=== PATIENT | male | born 1960 | race Caucasian/White ===

== ENCOUNTER 2020-12-09 09:35 | Inpatient (IN) | payer OTHER, MEDICAID, SELFPAY ==
[2020-12-09] VITALS (17 sets, daily range): BP systolic 126–218; BP diastolic 54–89; PULSE 53–78; RESP 16–18; TEMP 36.8–37.6; O2SAT 97–100; BMI 30.1
--- NOTE | 2020-12-09 09:48 | DI.RAD.S_ITS ---
PROCEDURE: XR FOOT LT MIN 3V INDICATIONS: ? stepped on nail 2 wks ago, now purple/ red L 5th / foot TECHNIQUE: 3 views of the foot were acquired. COMPARISON: None. FINDINGS: Bones: No fractures or dislocations. No suspicious bony lesions. Age-appropriate bony degenerative changes are seen. Soft tissues: There is soft tissue gas seen involving the proximal aspect 5th toe. No radiopaque foreign bodies are seen. Calcification is noted of the distal arteries. This degree of calcification is typically seen in patients with a long-standing history of diabetes. Please correlate with a history of such. IMPRESSION: Soft tissue gas can be seen involving proximal aspect 5th toe. No cira bony abnormality can be seen. If there is strong suspicion for developing osteomyelitis, please consider a dedicated MRI without and with contrast for further evaluation (assuming that there is no contraindication to MRI). Dictated by: Silas Merrill M.D. on 12/09/2020 at 9:06 Approved by: Silas Merrill M.D. on 12/09/2020 at 9:07
[2020-12-09 10:21] LABS: Add Manual Diff / Slide Review NO; Basophils Absolute Auto 100 /uL (0-100); Basophils Percent Auto 0.8 % (0-2); Eosinophils Absolute Auto 100 /uL (0-450); Eosinophils Percent Auto 0.4 % (2-4); Hematocrit 38.9 % (41-53); Hemoglobin 12.7 g/dL (13.5-17.5); Lymphocytes Absolute Auto 1000 /uL (1100-4500); Lymphocytes Percent Auto 7.1 % (25-40); Mean Corpuscular HGB Conc 32.7 % (30-36); Mean Corpuscular Hemoglobin 30.1 PG (26-34); Mean Corpuscular Volume 91.9 fL (80-100); Monocytes Absolute Auto 1200 /uL (0-900); Monocytes Percent Auto 8.8 % (3-14); Neutrophils Absolute Auto 11200 /uL (1500-7000); Neutrophils Percent Auto 82.9 % (50-75); Platelet Count 297 X10^3/uL (150-400); Red Blood Cell Count 4.23 X10^6/uL (4.5-5.9); Red Cell Distribution Width 13.7 % (11.6-14.8); White Blood Cell Count 13.5 X10^3/uL (4.5-11.0)
--- NOTE | 2020-12-09 10:23 | ED.LOWEXIN ---
HPI - Extremity Injury (Lower) General Chief Complaint: Extremity Injury, Lower Stated Complaint: LT FOOT INJURY/PAIN/TOE CHANGING COLOR/DIABETIC Time Seen by Provider: 12/09/20 10:20 Source: patient Mode of arrival: Wheelchair Limitations: no limitations History of Present Illness HPI Narrative: Patient is a 59-year-old male. History of high blood pressure and insulin-dependent diabetes who is here for evaluation of a red left foot and discoloration to his left little toe. Patient states that 2 weeks ago he stepped on a nail. He was wearing shoes and socks at the time. He states that a couple days ago he started to develop redness on the left side of his foot and then yesterday had discoloration of his toe. He is visiting the local area. He has not had any fevers. His last tetanus shot was 3 years ago. He went to an outside facility and then was sent to this emergency department for further evaluation. Related Data Home Medications Medication Instructions Recorded Confirmed amlodipine 5 mg tablet 5 mg PO DAILY 12/09/20 12/09/20 atorvastatin 20 mg tablet 20 mg PO BEDTIME 12/09/20 12/09/20 chlorthalidone 25 mg tablet 25 mg PO QAM 12/09/20 12/09/20 insulin glargine 100 unit/mL 38 unit SUBCUT BEDTIME 12/09/20 12/09/20 subcutaneous solution (Lantus U-100 Insulin) insulin lispro 100 unit/mL See Rx Instructions .ROUTE .COMPLEX 12/09/20 12/09/20 subcutaneous solution (Humalog U-100 Insulin) lisinopril 20 mg tablet 20 mg PO DAILY 12/09/20 12/09/20 Allergies Allergy/AdvReac Type Severity Reaction Status Date / Time Penicillins AdvReac Nausea Verified 12/09/20 09:55 Review of Systems Constitutional Constitutional: Denies fever(s) Cardiovascular Cardiovascular: Reports system reviewed and no additional complaints, except as documented Respiratory Respiratory: Reports system reviewed and no additional complaints, except as documented Gastrointestinal Gastrointestinal: Reports system reviewed and no additional complaints, except as documented Musculoskeletal Musculoskeletal: Reports as per HPI Integumentary/Breasts Skin/Breast: Reports as per HPI Neurologic Comments: Does have some sensory deficits but these are unchanged Endocrine Endocrine: Reports system reviewed and no additional complaints, except as documented Hematologic/Lymphatic On Anticoagulants: No Allergic/Immunologic Allergic/Immunologic: Reports system reviewed and no additional complaints, except as documented Patient History Medical History Diabetes Hypertension alcohol intake frequency: 0-2 drinks per day Substance Use Type: does not use Exam Initial Vital Signs Initial Vital Signs: Vital Signs Temperature 99.6 F 12/09/20 09:52 Pulse Rate 65 12/09/20 09:52 Respiratory Rate 18 12/09/20 09:52 Blood Pressure 218/89 H 12/09/20 09:52 Pulse Oximetry 99 12/09/20 09:52 Const General: cooperative and healthy appearing [facility] Head: normal to inspection and normocephalic Resp Effort & Inspection: normal respiratory effort Cardio Rate: regular rate Pulses: dorsalis pedis present on the left GI Inspection: normal to inspection Skin Other: Patient has redness that is located to the lateral aspect of his left foot that does extend up into the dorsum of the foot to the mid foot. The left little toe is purple in color. It is somewhat cooler compared to the other toes. Capillary refill is 4-5 seconds. Neuro Other: Patient does report sensation to light touch the left foot Extrem Other: Left ankle is unremarkable. Please see skin section Psych Appearance: grossly normal and well kempt Course Orders Ordered: ED Orders 12/09/20 09:48 XR foot LT min 3V Stat 12/09/20 10:10 C-Reactive Protein Quant Stat Complete Blood Count AUTO DIFF Stat Comprehensive Metabolic Panel Stat Erythrocyte Sedimentation Rate Stat Lactate (Lactic Acid) Stat Lipase Stat Procalcitonin Stat 12/09/20 10:34 Blood Culture Stat 12/09/20 10:53 COVID19 - ADMIT ([employer] swab/PCR) Stat Discontinued Medications Amlodipine Besylate (Amlodipine 5 Mg Tablet) 5 mg PO NOW ONE Stop: 12/09/20 10:34 Last Admin: 12/09/20 10:42 Dose: 5 mg Documented by: MAINOR Chlorthalidone (Chlorthalidone 25 Mg Tablet) 25 mg PO NOW ONE Stop: 12/09/20 10:34 Last Admin: 12/09/20 11:27 Dose: 25 mg Documented by: SANDI Sodium Chloride (Normal Saline 0.9%) 1,000 mls @ 1,000 mls/hr IV BOLUS ONE Stop: 12/09/20 11:14 Last Infusion: 12/09/20 11:34 Dose: 0 mls/hr Documented by: Admin: 12/09/20 10:29 Dose: 1,000 mls/hr Documented by: MAINOR Cefepime HCl 1 gm/ Sodium (Chloride) 100 mls @ 200 mls/hr IV NOW ONE Stop: 12/09/20 10:34 Last Infusion: 12/09/20 11:34 Dose: 0 mls/hr Documented by: Admin: 12/09/20 10:42 Dose: 200 mls/hr Documented by: MAINOR Lisinopril (Lisinopril 20 Mg Tablet) 20 mg PO NOW ONE Stop: 12/09/20 10:34 Last Admin: 12/09/20 11:27 Dose: 20 mg Documented by: SANDI Vital Signs Vital signs: Vital Signs - 8 hr 12/09/20 09:52 12/09/20 10:00 12/09/20 10:30 Temperature 99.6 F Pulse Rate 65 68 69 Respiratory Rate 18 16 Blood Pressure 218/89 H 218/89 H Pulse Oximetry 99 99 99 12/09/20 10:45 12/09/20 11:00 Temperature Pulse Rate 72 78 Respiratory Rate Blood Pressure 189/79 H 185/77 H Pulse Oximetry 98 100 MDM - Extremity Injury (Lower) Lab Data Attestation: I reviewed the patient's lab results. Result diagrams: 12/09/20 10:10 12/09/20 10:10 Labs: Lab Results 12/09/20 12/09/20 12/09/20 Range/Units 10:10 10:10 10:10 WBC 13.5 H (4.5-11.0) X10^3/uL RBC 4.23 L (4.5-5.9) X10^6/uL Hgb 12.7 L (13.5-17.5) g/dL Hct 38.9 L (41-53) % MCV 91.9 (80-100) fL MCH 30.1 (26-34) PG MCHC 32.7 (30-36) % RDW 13.7 (11.6-14.8) % Plt Count 297 (150-400) X10^3/uL Neut % (Auto) 82.9 H (50-75) % Lymph % (Auto) 7.1 L (25-40) % [place] % (Auto) 8.8 (3-14) % Eos % (Auto) 0.4 L (2-4) % Baso % (Auto) 0.8 (0-2) % Neut # (Auto) 18064 H (8129-0201) /uL Lymph # (Auto) 1000 L (7563-4009) /uL [place] # (Auto) 1200 H (0-900) /uL Eos # (Auto) 100 (0-450) /uL Baso # (Auto) 100 (0-100) /uL ESR (0-15) MM/HR Sodium 137 (137-145) mmol/L Potassium 4.4 (3.4-5.1) mmol/L Chloride 106 (98-107) mmol/L Carbon Dioxide 23 (22-32) mmol/L BUN 29 H (9-20) mg/dL Creatinine 1.37 H (0.66-1.25) mg/dL Estimated GFR 52.8 L (>60) mL/min BUN/Creatinine Ratio 21.2 (6-22) Glucose 119 H (80-110) mg/dL Lactate 1.0 (0.7-2.1) mmol/L Calcium 9.0 (8.4-10.2) mg/dL Total Bilirubin 0.5 (0.2-1.3) mg/dL AST 25 (17-59) IU/L ALT 17 (<50) IU/L Alkaline Phosphatase 89 (38-126) U/L C-Reactive Protein (<1.0) mg/dL Total Protein 7.3 (6.3-8.2) g/dL Albumin 4.0 (3.5-5.0) g/dL Globulin 3.3 (1.7-4.1) g/dL Albumin/Globulin Ratio 1.2 (1.0-2.8) Lipase 20 L (23-300) U/L Procalcitonin 0.09 (<0.5) ng/mL 12/09/20 12/09/20 Range/Units 10:10 10:10 WBC (4.5-11.0) X10^3/uL RBC (4.5-5.9) X10^6/uL Hgb (13.5-17.5) g/dL Hct (41-53) % MCV (80-100) fL MCH (26-34) PG MCHC (30-36) % RDW (11.6-14.8) % Plt Count (150-400) X10^3/uL Neut % (Auto) (50-75) % Lymph % (Auto) (25-40) % [place] % (Auto) (3-14) % Eos % (Auto) (2-4) % Baso % (Auto) (0-2) % Neut # (Auto) (1728-2689) /uL Lymph # (Auto) (9101-6486) /uL [place] # (Auto) (0-900) /uL Eos # (Auto) (0-450) /uL Baso # (Auto) (0-100) /uL ESR 37 H (0-15) MM/HR Sodium (137-145) mmol/L Potassium (3.4-5.1) mmol/L Chloride (98-107) mmol/L Carbon Dioxide (22-32) mmol/L BUN (9-20) mg/dL Creatinine (0.66-1.25) mg/dL Estimated GFR (>60) mL/min BUN/Creatinine Ratio (6-22) Glucose (80-110) mg/dL Lactate (0.7-2.1) mmol/L Calcium (8.4-10.2) mg/dL Total Bilirubin (0.2-1.3) mg/dL AST (17-59) IU/L ALT (<50) IU/L Alkaline Phosphatase (38-126) U/L C-Reactive Protein 7.3 H (<1.0) mg/dL Total Protein (6.3-8.2) g/dL Albumin (3.5-5.0) g/dL Globulin (1.7-4.1) g/dL Albumin/Globulin Ratio (1.0-2.8) Lipase (23-300) U/L Procalcitonin (<0.5) ng/mL MDM Narrative Medical decision making narrative: Patient is at baseline neurologic status. He does have good dorsalis pedis pulses. He is updated on his tetanus. He does have findings consistent with cellulitis. Most likely caused by the injury that he sustained 2 weeks ago. Concern for Pseudomonas given the nature of the injury. He is diabetic. He is nontoxic appearing. However given his presentation, nature of wound, diabetes I do feel that he needs admitted to the hospital for further evaluation. Discussed the case with Dr. Cruz with Internal Medicine who will admit for further evaluation and treatment. Discussed the admission with the patient who expressed understanding and agreement. Discharge Plan Departure Patient Disposition: Admitted As Inpatient Clinical Impression: Cellulitis, Hypertension
[2020-12-09 10:29] LABS: Alanine Aminotransferase 17 IU/L (<50); Albumin Globulin Ratio 1.2 (1.0-2.8); Alkaline Phosphatase 89 U/L (38-126); Aspartate Aminotransferase 25 IU/L (17-59); BUN Creatinine Ratio 21.2 (6-22); Bilirubin Total 0.5 mg/dL (0.2-1.3); Blood Urea Nitrogen 29 mg/dL (9-20); Carbon Dioxide 23 mmol/L (22-32); Chloride 106 mmol/L (98-107); Estimated Glomerular Filt Rate 52.8 mL/min (>60); Globulin 3.3 g/dL (1.7-4.1); Glucose 119 mg/dL (80-110); HEMOLYSIS < 15 (0-50); Lipase 20 U/L (23-300); Potassium 4.4 mmol/L (3.4-5.1); Sodium 137 mmol/L (137-145); Total Protein 7.3 g/dL (6.3-8.2)
[2020-12-09] MEDS: SODIUM CHLORIDE 0.9% 1,000 ML 1000 ML IV (10:29)
[2020-12-09] MEDS: CEFEPIME 1 GM in SODIUM CHLORIDE 0.9% 100 ML 200 ML IV (10:42)
[2020-12-09] MEDS: AMLODIPINE 5 MG TABLET PO (10:42)
[2020-12-09 10:46] LABS: Procalcitonin 0.09 ng/mL (<0.5)
[2020-12-09 11:18] LABS: C-Reactive Protein Quant 7.3 mg/dL (<1.0)
[2020-12-09 11:26] LABS: Erythrocyte Sedimentation Rate 37 MM/HR (0-15)
[2020-12-09] MEDS: CHLORTHALIDONE 25 MG TABLET PO (11:27)
[2020-12-09] MEDS: lisinopriL 20 MG TABLET PO (11:27)
--- NOTE | 2020-12-09 13:20 | DI.MRI.S_ITS ---
PROCEDURE: MR FOOT LT WO/W CON INDICATIONS: puncture on ball of L foot, now with purple 5th toe, osteo? TECHNIQUE: Noncontrast coronal T1 spin echo and STIR, sagittal T1 spin echo with fat saturation and STIR, axial T1 spin echo and T2 fast spin echo with fat saturation. After the administration of contrast, axial/sagittal/coronal T1 spin echo with fat saturation through the left forefoot . COMPARISON: [facility], CR, XR FOOT LT MIN 3V, 12/09/2020, 9:51. FINDINGS: Image quality: Severely degraded by motion artifact. Bones: Evaluation is suboptimal secondary to severe motion artifact. There is suggestion of loss of the normal marrow fat signal intensity within the distal phalanx of the 5th toe although partially obscured by motion artifact. This also appears distant from the soft tissue swelling. At the 5th metatarsal head, there is possible cortical loss along the lateral aspect suggestive of erosion versus osteomyelitis. There is subtle enhancement seen in this area There is also chronic appearing erosion of the 1st metatarsal head with sclerotic margins. Soft tissues: There is soft tissue swelling involving the 5th toe. No definite rim enhancing abscess seen. There is dorsal forefoot subcutaneous edema. IMPRESSION: Severely motion degraded examination. Soft tissue swelling about the 5th toe. Marrow signal changes at the 5th metatarsal head could represent osteomyelitis versus erosion related to non infectious, inflammatory arthritis. Please correlate clinically. Additional marrow signal changes present in the distal phalanx of the 5th toe although partially obscured by motion artifact, technically indeterminate. Please see discussion above. Chronic appearing, large erosion involving the 1st metatarsal head. Dictated by: Terence Coreas M.D. on 12/09/2020 at 16:47 Approved by: Terence Coreas M.D. on 12/09/2020 at 17:00
[2020-12-09 13:23] LABS: Bacteria Urine None Seen; RBC Urine None Seen (0-5/HPF)
[2020-12-09] MEDS: SODIUM CHLORIDE 0.9% 1,000 ML 100 ML IV (13:34)
[2020-12-09] MEDS: MEROPENEM 1 GM in SODIUM CHLORIDE 0.9% 100 ML 200 ML IV (13:46)
[2020-12-09 14:04] LABS: COVID19 - ADMIT (NP swab/PCR) Negative (Negative)
[2020-12-09 14:21] LABS: Culture Indicated Urine Cult Not Indicated; WBC Urine 0-1/HPF (0-5/HPF)
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
[2020-12-09] MEDS: HYDROCODONE/ACET 5/325 TABLET 1 TAB PO (17:51)
[2020-12-09] MEDS: ATORVASTATIN 20 MG TABLET PO (21:02)
[2020-12-09] MEDS: HEPARIN 5,000 UNIT/ML VIAL 5000 UNIT SUBCUT (21:02)
[2020-12-09] MEDS: INSULIN GLARGINE 100 UNIT/ML 3ML PEN 38 UNIT SUBCUT (21:27)
[2020-12-09] MEDS: INSULIN LISPRO 100 UNIT/ML 3ML VIAL SUBCUT (21:28)
[2020-12-10] VITALS (7 sets, daily range): BP systolic 135–169; BP diastolic 59–73; PULSE 57–61; RESP 16–20; TEMP 36.5–36.8; O2SAT 97–100
[2020-12-10] MEDS: HYDROCODONE/ACET 5/325 TABLET 1 TAB PO ×3 (01:05→19:35)
[2020-12-10] MEDS: MEROPENEM 1 GM in SODIUM CHLORIDE 0.9% 100 ML 200 ML IV ×2 (01:05→14:17)
[2020-12-10] MEDS: SODIUM CHLORIDE 0.9% 1,000 ML 100 ML IV ×2 (04:31→15:44)
[2020-12-10 05:40] LABS: Add Manual Diff / Slide Review NO; Basophils Absolute Auto 100 /uL (0-100); Basophils Percent Auto 1.2 % (0-2); Eosinophils Absolute Auto 100 /uL (0-450); Eosinophils Percent Auto 1.4 % (2-4); Hematocrit 35.5 % (41-53); Hemoglobin 11.7 g/dL (13.5-17.5); Lymphocytes Absolute Auto 1600 /uL (1100-4500); Lymphocytes Percent Auto 17.4 % (25-40); Mean Corpuscular HGB Conc 33.1 % (30-36); Mean Corpuscular Hemoglobin 30.3 PG (26-34); Mean Corpuscular Volume 91.8 fL (80-100); Monocytes Absolute Auto 1200 /uL (0-900); Monocytes Percent Auto 12.7 % (3-14); Neutrophils Absolute Auto 6200 /uL (1500-7000); Neutrophils Percent Auto 67.3 % (50-75); Platelet Count 287 X10^3/uL (150-400); Red Blood Cell Count 3.86 X10^6/uL (4.5-5.9); Red Cell Distribution Width 13.6 % (11.6-14.8); White Blood Cell Count 9.2 X10^3/uL (4.5-11.0)
[2020-12-10 05:44] LABS: BUN Creatinine Ratio 17.2 (6-22); Blood Urea Nitrogen 20 mg/dL (9-20); Calcium 8.2 mg/dL (8.4-10.2); Carbon Dioxide 25 mmol/L (22-32); Chloride 105 mmol/L (98-107); Estimated Glomerular Filt Rate > 60.0 mL/min (>60); Glucose 59 mg/dL (80-110); HEMOLYSIS < 15 (0-50); Potassium 3.8 mmol/L (3.4-5.1); Sodium 135 mmol/L (137-145)
--- NOTE | 2020-12-10 06:40 | PC.NURSE ---
0615 Lab. glucose 59 given some snacks, apple juice & chocolate pudding. Declined some sandwich & milk, will monitor.
[2020-12-10] MEDS: AMLODIPINE 5 MG TABLET PO (08:04)
[2020-12-10] MEDS: HEPARIN 5,000 UNIT/ML VIAL 5000 UNIT SUBCUT ×2 (08:04→20:40)
[2020-12-10] MEDS: INSULIN LISPRO 100 UNIT/ML 3ML VIAL SUBCUT ×3 (08:10→17:05)
--- NOTE | 2020-12-10 14:36 | PM.PN.1 ---
Subjective Subjective Date Patient Seen: 12/10/20 Time Patient Seen: 08:00 Interval history: Today he feels well. Has pain in the foot. The toe still remains discolored and he still has foot erythema. His MRI had questionable osteomyelitis. Exam Vital Signs (past 8 hours): - 12/10/20 07:00 12/10/20 08:00 12/10/20 09:24 Temperature 97.8 F Pulse Rate 61 Respiratory Rate 16 Blood Pressure 169/73 H 147/62 H Pulse Oximetry 98 98 Oxygen Delivery Method Room Air Oxygen Flow Rate 0 Narrative Exam Narrative: GEN: no acute distress HEENT: PERRL, moist mucous membranes NECK: trachea midline, no JVD CV: regular rate and rhythm with no murmurs PULM: clear bilaterally, no wheezes, rhonchi rales ABD: soft, nontender, nondistended, no organomegaly, normal bowel sounds EXT: warm and well perfused with no edema, pedal pulses normal and equal bilaterally SKIN: erythema on the lateral aspect of the dorsal foot that extends from base of toe to midfoot, the left 5th toe is swollen, slightly purple, warm to touch, base of left foot with well healing ulcer with no fluctuance but tenderness to touch NEURO: awake, alert and oriended, moving all extremities with no focal deficits PSYCH: pleasant, cooperative Objective Labs Result Diagrams: 12/10/20 04:50 12/10/20 04:50 Labs: Laboratory Results - last 24 hr 12/09/20 12/10/20 12/10/20 18:35 04:50 04:50 WBC 9.2 RBC 3.86 L Hgb 11.7 L Hct 35.5 L MCV 91.8 MCH 30.3 MCHC 33.1 RDW 13.6 Plt Count 287 Neut % (Auto) 67.3 Lymph % (Auto) 17.4 L [place] % (Auto) 12.7 Eos % (Auto) 1.4 L Baso % (Auto) 1.2 Neut # (Auto) 6200 Lymph # (Auto) 1600 [place] # (Auto) 1200 H Eos # (Auto) 100 Baso # (Auto) 100 Sodium 135 L Potassium 3.8 Chloride 105 Carbon Dioxide 25 BUN 20 Creatinine 1.16 Estimated GFR > 60.0 BUN/Creatinine Ratio 17.2 Glucose 59 L Calcium 8.2 L Nasal Screen MRSA (PCR) Negative for mrsa [facility] Medical History Diabetes Hypertension Social History household members: spouse Assessment & Plan Assessment & Plan narrative: Mr. Vieira is a a 59M with PMH DM, HTN with recent left foot puncture wound with nail now with left foot and toe cellulitis. 1. Acute cellulitis of left toe and foot -for now given concern for pseudomonas will order for meropenem -do not see risk factor for MRSA, will check nasal swab pcr, and no vancomycin for now as he has elevated creatinine -blood cultures ordered -ESR and CRP elevate, foot xray showed no osteomyelitis -MRI showed questionable change of osteomyelitis at the 5th metatarsal and 5th toe, but not definitive -orthopedic recommends dc with follow up within one week 2. CHRIS -creatinine improving with IV fluids -hold lisinopril for now -has received IVF, avoid nephrotoxins -monitor BMP dailyi 3. Type 2 DM on insulin -order patient's home dose of lantus at 38U daily -keep on insulin sliding scale, check glucose achs 4. Hypertension -did get home medications in ED -for now will continue with just amlodipine given elevated creatinine -if continues with elevated blood pressures may need additional medications added to regimen CODE: Full Proxy: , Marilyn Vieira DVT ppx: heparin sc bid I have utilized all available immediate resources to obtain, update, or review the patient's current medications.
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
[2020-12-10] MEDS: INSULIN GLARGINE 100 UNIT/ML 3ML PEN 38 UNIT SUBCUT (20:40)
[2020-12-10] MEDS: ATORVASTATIN 20 MG TABLET PO (20:43)
[2020-12-11] VITALS (7 sets, daily range): BP systolic 147–179; BP diastolic 66–70; PULSE 58–63; RESP 16–18; TEMP 36.2–37.2; O2SAT 96–98
[2020-12-11] MEDS: HYDROCODONE/ACET 5/325 TABLET 1 TAB PO ×4 (00:27→22:06)
[2020-12-11] MEDS: MEROPENEM 1 GM in SODIUM CHLORIDE 0.9% 100 ML 200 ML IV ×2 (01:24→12:45)
[2020-12-11] MEDS: SODIUM CHLORIDE 0.9% 1,000 ML 100 ML IV (01:24)
--- NOTE | 2020-12-11 01:58 | PC.NURSE ---
Patient is alert and oriented. Breath sounds CTA with RA sat of 97%. HR irregular with rate of 60. BP elevated at 147/70 and has been trending high. Denied nausea. BT present and abdomen is soft. Denied dysuria, frequency or urgency with urination; using urinal at bedside. Is able to turn himself. Is out of bed with SBA; denied need for assistive device. Refusing SCD's so reminded to ankle wave. Initially denied pain but after being up to urinate states pain in foot was 6/10 so medicated with Vicodin and is currently asleep. Fall risk score is moderate but calling for assistance appropriately so bed alarm is not being used at this time.
[2020-12-11 05:10] LABS: Hematocrit 36.1 % (41-53); Hemoglobin 12.1 g/dL (13.5-17.5); Mean Corpuscular HGB Conc 33.4 % (30-36); Mean Corpuscular Hemoglobin 30.2 PG (26-34); Mean Corpuscular Volume 90.6 fL (80-100); Platelet Count 293 X10^3/uL (150-400); Red Blood Cell Count 3.99 X10^6/uL (4.5-5.9); Red Cell Distribution Width 13.5 % (11.6-14.8); White Blood Cell Count 9.9 X10^3/uL (4.5-11.0)
[2020-12-11 05:25] LABS: BUN Creatinine Ratio 15.2 (6-22); Blood Urea Nitrogen 15 mg/dL (9-20); Calcium 8.3 mg/dL (8.4-10.2); Carbon Dioxide 27 mmol/L (22-32); Chloride 105 mmol/L (98-107); Estimated Glomerular Filt Rate > 60.0 mL/min (>60); Glucose 93 mg/dL (80-110); HEMOLYSIS < 15 (0-50); Potassium 3.9 mmol/L (3.4-5.1); Sodium 134 mmol/L (137-145)
[2020-12-11] MEDS: AMLODIPINE 5 MG TABLET PO (08:08)
[2020-12-11] MEDS: SODIUM CHLORIDE 0.9% FLUSH 10 ML IV ×2 (08:10→22:06)
[2020-12-11] MEDS: HEPARIN 5,000 UNIT/ML VIAL 5000 UNIT SUBCUT ×2 (08:10→20:35)
--- NOTE | 2020-12-11 08:28 | P.PN_ITS ---
Subjective Subjective Date Patient Seen: 12/11/20 Time Patient Seen: 08:28 Interval history: Patient states he is doing well overall but reports some moderate pain level. At this time he rates his pain a 5/10 in intensity. Patient denies fever, chills, nausea, chest pain, or shortness of breath. Patient states that he has had more difficulty recently moving the toes of his left foot. However, he denies worsening pain or numbness and tingling in the left lower extremity at this time Exam Vital Signs (past 8 hours): - 12/11/20 08:00 Temperature 97.4 F L Pulse Rate 58 L Respiratory Rate 16 Blood Pressure 179/66 H Pulse Oximetry 97 Oxygen Delivery Method Room Air Oxygen Flow Rate 0 Narrative Exam Narrative: 59-year-old male. Patient is resting comfortably in bed, is in no acute distress, and is alert and oriented x3. Skin is warm dry, dry, and pink. Left 5th toe is erythematous and dusky in appearance. Erythema appreciated on the lateral aspect of the left foot with a line of demarcation drawn around it. Gross motor function intact. Puncture wound noted on the plantar aspect of the left foot over the distal portion of the 5th metatarsal. Const General: cooperative and comfortable Resp Effort & Inspection: normal respiratory effort and able to speak in complete sentences Objective Labs Result Diagrams: 12/11/20 04:55 12/11/20 04:55 Labs: Laboratory Results - last 24 hr 12/11/20 12/11/20 04:55 04:55 WBC 9.9 RBC 3.99 L Hgb 12.1 L Hct 36.1 L MCV 90.6 MCH 30.2 MCHC 33.4 RDW 13.5 Plt Count 293 Sodium 134 L Potassium 3.9 Chloride 105 Carbon Dioxide 27 BUN 15 Creatinine 0.99 Estimated GFR > 60.0 BUN/Creatinine Ratio 15.2 Glucose 93 Calcium 8.3 L [facility] Medical History Diabetes Hypertension Social History household members: spouse Assessment & Plan Assessment & Plan narrative: Patient doing well and is comfortable and stable at the moment. Plan per Dr. Cruz is to keep patient overnight for continued IV antibiotic therapy. Following discharge from hospital patient will follow up with orthopedic clinic in 1 week.
--- NOTE | 2020-12-11 10:56 | PM.PN.1 ---
Subjective Subjective Date Patient Seen: 12/11/20 Time Patient Seen: 08:00 Interval history: Patient states his foot is approximately the same in terms of pain. Exam Vital Signs (past 8 hours): - 12/11/20 08:00 12/11/20 08:43 12/11/20 08:44 Temperature 97.4 F L Pulse Rate 58 L Respiratory Rate 16 Blood Pressure 179/66 H Pulse Oximetry 97 97 97 Oxygen Delivery Method Room Air Oxygen Flow Rate 0 Narrative Exam Narrative: EN: no acute distress HEENT: PERRL, moist mucous membranes NECK: trachea midline, no JVD CV: regular rate and rhythm with no murmurs PULM: clear bilaterally, no wheezes, rhonchi rales ABD: soft, nontender, nondistended, no organomegaly, normal bowel sounds EXT: warm and well perfused with no edema, pedal pulses normal and equal bilaterally SKIN: erythema on the lateral aspect of the dorsal foot that extends from base of toe to midfoot, the left 5th toe is swollen, slightly purple, warm to touch, base of left foot with well healing ulcer with no fluctuance but tenderness to touch NEURO: awake, alert and oriended, moving all extremities with no focal deficits PSYCH: pleasant, cooperative Objective Labs Result Diagrams: 12/11/20 04:55 12/11/20 04:55 Labs: Laboratory Results - last 24 hr 12/11/20 12/11/20 04:55 04:55 WBC 9.9 RBC 3.99 L Hgb 12.1 L Hct 36.1 L MCV 90.6 MCH 30.2 MCHC 33.4 RDW 13.5 Plt Count 293 Sodium 134 L Potassium 3.9 Chloride 105 Carbon Dioxide 27 BUN 15 Creatinine 0.99 Estimated GFR > 60.0 BUN/Creatinine Ratio 15.2 Glucose 93 Calcium 8.3 L [facility] Medical History Diabetes Hypertension Social History household members: spouse Assessment & Plan Assessment & Plan narrative: Mr. Vieira is a a 59M with PMH DM, HTN with recent left foot puncture wound with nail now with left foot and toe cellulitis. 1. Acute cellulitis of left toe and foot -noted on 12/11 to have slightly more erythema and more discoloration of the 5th toe, will plan to keep for an additional day of IV antibiotics -for now given concern for pseudomonas will order for meropenem -do not see risk factor for MRSA, will check nasal swab pcr, and no vancomycin for now as he has elevated creatinine -mrsa swab negative -blood cultures ordered and no growth to date -ESR and CRP elevate, foot xray showed no osteomyelitis -MRI showed questionable change of osteomyelitis at the 5th metatarsal and 5th toe, but not definitive -orthopedic recommends dc with follow up within one week, likely can dc on oral antibiotics for at least 2 weeks and plan for close follow to determine if needs extended antibiotics 2. CHRIS -creatinine improving with IV fluids -hold lisinopril for now -has received IVF, avoid nephrotoxins -monitor BMP dailyi 3. Type 2 DM on insulin -order patient's home dose of lantus at 38U daily -keep on insulin sliding scale, check glucose achs 4. Hypertension -did get home medications in ED -for now will continue with just amlodipine given elevated creatinine -if continues with elevated blood pressures may need additional medications added to regimen CODE: Full Proxy: , Marilyn Vieira DVT ppx: heparin sc bid I have utilized all available immediate resources to obtain, update, or review the patient's current medications.
[2020-12-11] MEDS: CHLORTHALIDONE 25 MG TABLET PO (11:25)
[2020-12-11] MEDS: INSULIN LISPRO 100 UNIT/ML 3ML VIAL SUBCUT ×3 (12:39→20:35)
[2020-12-11] MEDS: ATORVASTATIN 20 MG TABLET PO (20:35)
[2020-12-11] MEDS: INSULIN GLARGINE 100 UNIT/ML 3ML PEN 38 UNIT SUBCUT (20:37)
[2020-12-12] MEDS: SODIUM CHLORIDE 0.9% 250 ML 21 ML IV (01:31)
[2020-12-12] MEDS: MEROPENEM 1 GM in SODIUM CHLORIDE 0.9% 100 ML 200 ML IV (01:31)
[2020-12-12] MEDS: SODIUM CHLORIDE 0.9% FLUSH 10 ML IV ×2 (01:31→09:18)
[2020-12-12 01:38] VITALS: BP 172/69; PULSE 55; RESP 16; TEMP 37; O2SAT 99
--- NOTE | 2020-12-12 01:49 | PC.NURSE ---
Patient is alert and oriented. Breath sounds CTA with RA sat of 99%. HRR but BP elevated at 172/69; reordered Chlorthalidone + Lisinopril yesterday. Denies nausea. BT present and abdomen is soft. Denies dysuria, frequency or urgency with urination; using urinal at bedside. Able to move himself in bed. Gait not assessed at this time as has not been out of bed as yet this shift. Erythema present in lateral/anterior aspect of left foot but within previously drawn markings. Left 5th toe appears to be more swollen tonight and is still a blue-purple discoloration. Pedal pulse in left foot is weaker than in right. Refusing to wear SCD's as they make it difficult for him to sleep; reminded to ankle wave. Denied pain at present time. Fall risk score is moderate; calls for assistance appropriately so bed alarm is not in use at this time.
[2020-12-12 05:45] LABS: Hematocrit 38.1 % (41-53); Hemoglobin 12.7 g/dL (13.5-17.5); Mean Corpuscular HGB Conc 33.4 % (30-36); Mean Corpuscular Hemoglobin 30.2 PG (26-34); Mean Corpuscular Volume 90.4 fL (80-100); Platelet Count 306 X10^3/uL (150-400); Red Blood Cell Count 4.21 X10^6/uL (4.5-5.9); Red Cell Distribution Width 13.2 % (11.6-14.8); White Blood Cell Count 10.4 X10^3/uL (4.5-11.0)
[2020-12-12 05:59] LABS: BUN Creatinine Ratio 16.2 (6-22); Blood Urea Nitrogen 17 mg/dL (9-20); Carbon Dioxide 28 mmol/L (22-32); Chloride 101 mmol/L (98-107); Estimated Glomerular Filt Rate > 60.0 mL/min (>60); Glucose 64 mg/dL (80-110); HEMOLYSIS 17 (0-50); Sodium 134 mmol/L (137-145)
[2020-12-12 07:57] VITALS: BP 147/68; PULSE 55; RESP 16; TEMP 36.4; O2SAT 98
[2020-12-12 08:19] VITALS: O2SAT 97
[2020-12-12] MEDS: HEPARIN 5,000 UNIT/ML VIAL 5000 UNIT SUBCUT (09:17)
[2020-12-12] MEDS: CHLORTHALIDONE 25 MG TABLET PO (09:17)
[2020-12-12] MEDS: AMLODIPINE 5 MG TABLET PO (09:17)
[2020-12-12] MEDS: lisinopriL 20 MG TABLET PO (09:17)
--- NOTE | 2020-12-12 10:13 | P.PN_ITS ---
Subjective Subjective Date Patient Seen: 12/12/20 Time Patient Seen: 10:13 Interval history: The patient's pain is mild and well controlled current medications. He denies any fevers, chills, night sweats. He denies nausea, vomiting. The patient would like to be discharged home, however we are waiting on final culture results. He is currently on IV meropenem. Exam Vital Signs (past 8 hours): - 12/12/20 07:57 12/12/20 08:19 Temperature 97.6 F Pulse Rate 55 L Respiratory Rate 16 Blood Pressure 147/68 H Pulse Oximetry 98 97 Oxygen Delivery Method Room Air Oxygen Flow Rate 0 Narrative Exam Narrative: Pleasant 59-year-old male, resting comfortably in bed, no acute distress. Left 5th toe is erythematous and purple in appearance. There is erythema noted on the lateral aspect of the left foot with a line of demarcation drawn around it. There is a puncture wound noted on the plantar aspect of the left foot as well. Gross motor function intact. Bilateral lower extremities are grossly intact to light touch. Cultures are still pending this morning. Objective Labs Result Diagrams: 12/12/20 05:33 12/12/20 05:33 Labs: Laboratory Results - last 24 hr 12/12/20 12/12/20 05:33 05:33 WBC 10.4 RBC 4.21 L Hgb 12.7 L Hct 38.1 L MCV 90.4 MCH 30.2 MCHC 33.4 RDW 13.2 Plt Count 306 Sodium 134 L Potassium 4.0 Chloride 101 Carbon Dioxide 28 BUN 17 Creatinine 1.05 Estimated GFR > 60.0 BUN/Creatinine Ratio 16.2 Glucose 64 L Calcium 9.0 [facility] Medical History Diabetes Hypertension Social History household members: spouse Assessment & Plan Assessment & Plan narrative: The patient is doing well currently. He the cultures are still pending and the patient is still on IV antibiotics. Okay to DC when cleared by the hospitalist. Follow up with Orthopedics in 1 week
[2020-12-12] MEDS: HYDROCODONE/ACET 5/325 TABLET 1 TAB PO (12:15)
[2020-12-12] MEDS: INSULIN LISPRO 100 UNIT/ML 3ML VIAL SUBCUT (12:57)
--- NOTE | 2020-12-12 13:58 | CM.DPNOTE ---
DC Note DC order placed by Dr Birch. Patient still plans to DC home w/spouse to return home to [place] and return for Ortho appt in one week. 

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
--- NOTE | 2020-12-12 15:03 | PC.NURSE ---
Day shift: Paperwork signed and all questions answered. Pt has all personal belongings. MD scripts sent to [facility] by . Taken to WC by this travel writer. He tolerated the transfer to the car well. Encouraged to call [facility] on Monday morning to make the f/u. He said he would. Also encouraged to take all antibiotics until they are gone. He said he would. Pt also stated dsI'm happy to be going home today but I just hope it goes well.
== END 2020-12-12 15:08 | disposition home or self-care (01) | DRG 383 ==
LOC: ED 11:03 → AC 13:24
PROVIDERS: Admitting Provider Internal Medicine; Emergency Provider Emergency Medicine; Referring Provider Emergency Medicine; Visit Provider Internal Medicine
DX: L03.032 Cellulitis of left toe (principal); L03.116 Cellulitis of left lower limb; N17.9 Acute kidney failure, unspecified; E11.69 Type 2 diabetes mellitus with other specified complication; M86.8X7 Other osteomyelitis, ankle and foot; I10 Essential (primary) hypertension; Z79.4 Long term (current) use of insulin; W45.0XXA Nail entering through skin, initial encounter; Z20.822 Contact with and (suspected) exposure to COVID-19
CPT/HCPCS: 36415; 73630; 73720; 80048; 80053; 81003; 81015; 82962; 83605; 83690; 84145; 85025; 85027; 85651; 86140; 87040; 87635; 87797; 94760; 96365; 99284; 99285; 99406; C9803; A9579; J0692; J1644; J1815; J2185